=== PATIENT | male | born 1960 | race Caucasian/White ===

== ENCOUNTER 2017-04-01 19:41 | Emergency (ER) | payer MEDICARE, MEDICAID ==
[2017-04-01] MEDS ORDERED: Aspirin Low Dose CHEW TAB* 81 MG PO ONE (20:00)
[2017-04-01 20:14] LABS: Hematocrit 42 % (42-52); Hemoglobin 14.8 g/dl (14.0-18.0); Mean Corpuscular HGB Conc 35 g/dl (31-36); Mean Corpuscular Hemoglobin 33 pg (27-31); Mean Corpuscular Volume 94 fL (80-94); Mean Platelet Volume 8 um3 (7.4-10.4); Red Blood Count 4.52 10^6/ul (4.0-5.4); Red Cell Distribution Width 13 % (10.5-15); White Blood Count 12.7 10^3/ul (3.5-10.8)
[2017-04-01 20:29] LABS: ALT 56 U/L (7-52); Albumin 4.4 g/dL (3.2-5.2); Alkaline Phosphatase 53 U/L (34-104); Blood Urea Nitrogen 12 mg/dL (6-24); CO2 Carbon Dioxide 22 mmol/L (22-32); Chloride 99 mmol/L (101-111); EGFR African American 109.4 (>60); EGFR Non-African American 85.1 (>60); Globulin 2.9 g/dL (2-4); Glucose 203 mg/dL (70-100); Sodium 133 mmol/L (133-145); Total Protein 7.3 g/dL (6.4-8.9)
[2017-04-01 20:45] LABS: Anion Gap 12 mmol/L (2-11)
--- NOTE | 2017-04-01 20:50 | RAD ---
INDICATION: Chest pain COMPARISON: December 30, 2011 TECHNIQUE: AP seated and lateral views were obtained. FINDINGS: Bones/Soft Tissues: There are no acute bony findings. Cardiomediastinal: The cardiomediastinal silhouette is normal. Lungs: There are no infiltrates. There is hyperinflation Pleura: There are no pleural effusions. Other: None IMPRESSION: HYPERINFLATION. NO ACTIVE DISEASE
--- NOTE | 2017-04-01 21:06 | ED ---
I, Geovani,Esau, scribed for Hipolito Rosenbaum MD on 04/01/17 at 2005 . HPI Chest Pain - HPI Summary HPI Summary: This 57 y/o male presents to ED for sharp chest pain since 1830 PM. Positive nausea, tremor, and numbness at LUE and LLE. Pt states was working outdoors all day PMHx is significant for AR s/p cardiac stent, COPD, neuropathy and AAA, and pt states today's episode feel similar to his previous AR. Pt is not oxygen dependent at home. - History of Current Complaint Chief Complaint: EDShortnessOfBreath Time Seen by Provider: 04/01/17 19:51 Hx Obtained From: Patient, Medical Records Onset/Duration: Started Hours Ago, Atraumatic, Still Present Timing: Constant Pain Intensity: 3 Pain Scale Used: 0-10 Numeric Chest Pain Location: Diffuse Chest Pain Radiates: No Aggravating Factor(s): Nothing Alleviating Factor(s): Nothing Associated Signs and Symptoms: Positive: Chest Pain, Numbness - LLE and LUE, Shortness of Breath - new onset or chronic?, Nausea, Other: - tremor. Negative : Fever - Allergy/Home Medications Allergies/Adverse Reactions: Allergies Allergy/AdvReac Type Severity Reaction Status Date / Time Atenolol Allergy Unknown Verified 12/06/13 13:31 Reaction Details PMH/Surg Hx/FS Hx/Imm Hx Cardiovascular History: Reports: Hx Aneurysm - abd aneurysm, Hx Coronary Artery Disease, Hx Myocardial Infarction - s/p stent Respiratory History: Reports: Hx Chronic Obstructive Pulmonary Disease (COPD) Neurological History: Reports: Hx Peripheral Neuropathy Infectious Disease History: No Infectious Disease History: Denies: Traveled Outside the [place] in Last 30 Days - Family History Known Family History: Positive: Hypertension - Social History Lives: With Family Hx Substance Use: No Substance Use Type: Reports: None Hx Tobacco Use: Yes Smoking Status (MU): Former Smoker Review of Systems Negative: Fever Positive: Chest Pain Positive: Shortness Of Breath - acute or chronic? Positive: Nausea Positive: Other - tremor Positive: Numbness - LLE and LUE All Other Systems Reviewed And Are Negative: Yes Physical Exam Triage Information Reviewed: Yes Vital Signs On Initial Exam: Initial Vitals Temp Pulse Resp BP Pulse Ox 97.7 F 100 18 131/87 96 04/01/17 19:45 04/01/17 19:45 04/01/17 19:45 04/01/17 19:45 04/01/17 19:45 Vital Signs Reviewed: Yes Appearance: Positive: Well-Appearing, No Pain Distress Skin: Positive: Warm, Dry Eyes: Positive: KEE[place] ENT: Positive: Hearing grossly normal Neck: Positive: Supple Respiratory/Lung Sounds: Positive: Clear to Auscultation, Breath Sounds Present Cardiovascular: Positive: RRR Abdomen Description: Positive: Nontender, Soft Bowel Sounds: Positive: Present Musculoskeletal: Positive: Strength/ROM Intact Neurological: Positive: Alert, Oriented to Person Place, Time Diagnostics - Vital Signs Vital Signs Temp Pulse Resp BP Pulse Ox 04/01/17 19:47 97.7 F 100 18 131/87 97 04/01/17 19:45 97.7 F 100 18 131/87 96 - Laboratory Lab Results: Lab Results 04/01/17 04/01/17 04/01/17 Range/Units 20:07 20:07 20:07 WBC 12.7 H (3.5-10.8) 10^3/ul RBC 4.52 (4.0-5.4) 10^6/ul Hgb 14.8 (14.0-18.0) g/dl Hct 42 (42-52) % MCV 94 (80-94) fL MCH 33 H (27-31) pg MCHC 35 (31-36) g/dl RDW 13 (10.5-15) % Plt Count 219 (150-450) 10^3/ul MPV 8 (7.4-10.4) um3 Neut % (Auto) 79.2 (38-83) % Lymph % (Auto) 14.1 L (25-47) % [place] % (Auto) 5.3 (1-9) % Eos % (Auto) 0.5 (0-6) % Baso % (Auto) 0.9 (0-2) % Absolute Neuts (auto) 10.1 H (1.5-7.7) 10^3/ul Absolute Lymphs (auto) 1.8 (1.0-4.8) 10^3/ul Absolute Monos (auto) 0.7 (0-0.8) 10^3/ul Absolute Eos (auto) 0.1 (0-0.6) 10^3/ul Absolute Basos (auto) 0.1 (0-0.2) 10^3/ul Absolute Nucleated RBC 0 10^3/ul Nucleated RBC % 0 Sodium 133 (133-145) mmol/L Potassium TNP Chloride 99 L (101-111) mmol/L Carbon Dioxide 22 (22-32) mmol/L Anion Gap 12 H (2-11) mmol/L BUN 12 (6-24) mg/dL Creatinine 0.92 (0.67-1.17) mg/dL Est GFR ( Amer) 109.4 (>60) Est GFR (Non-Af Amer) 85.1 (>60) BUN/Creatinine Ratio 13.0 (8-20) Glucose 203 H (70-100) mg/dL Lactic Acid 3.6 H* (0.5-2.0) mmol/L Calcium 9.0 (8.6-10.3) mg/dL Total Bilirubin 0.40 (0.2-1.0) mg/dL AST TNP ALT 56 H (7-52) U/L Alkaline Phosphatase 53 (34-104) U/L Troponin I 0.00 (<0.04) ng/mL Total Protein 7.3 (6.4-8.9) g/dL Albumin 4.4 (3.2-5.2) g/dL Globulin 2.9 (2-4) g/dL Albumin/Globulin Ratio 1.5 (1-3) Result Diagrams: 04/01/17 20:07 04/01/17 20:55 Lab Statement: Any lab studies that have been ordered have been reviewed, and results considered in the medical decision making process. - Radiology CXR Xray Interpretation: No Acute Changes - HYPERINFLATION. NO ACTIVE DISEASE Radiology Interpretation Completed By: Radiologist - EKG 1958 Cardiac Rate: NL - 97 bpm EKG Rhythm: Sinus Rhythm Re-Evaluation - Re-Evaluation First Eval Re-Evaluation Time: 23:38 Change: Improved Comment: MD in room to update pt on CXR and bloodwork. Chest Pain Course/Dx - Diagnoses Provider Diagnoses: Chest pain Discharge - Discharge Plan Condition: Improved Disposition: HOME Patient Education Materials: Chest Pain (ED) Referrals: Caden Lainez MD [Primary Care Provider] - 2 Days The documentation as recorded by the Geovani cruz Soohyun accurately reflects the service I personally performed and the decisions made by me, Hipolito Rosenbaum MD.
[2017-04-01 23:47] VITALS: BP 134/82
== END 2017-04-01 23:47 | disposition home or self-care (01) ==
LOC: ED 19:41
DX: R07.9 Chest pain, unspecified (principal); J44.9 Chronic obstructive pulmonary disease, unspecified; Z87.891 Personal history of nicotine dependence; I25.2 Old myocardial infarction
CPT/HCPCS: 36415; 71020; 80053; 83605; 84484; 85025; 93005; 99283; A9270-GY

== ENCOUNTER 2017-08-14 16:21 | Emergency (ER) | payer MEDICARE, MEDICAID ==
[2017-08-14 17:54] LABS: ABS Basophils 0.1 10^3/ul (0-0.2); ABS Eosinophils 0.2 10^3/ul (0-0.6); ABS Lymphocytes 2.7 10^3/ul (1.0-4.8); ABS Monocytes 0.8 10^3/ul (0-0.8); ABS Neutrophils 4.2 10^3/ul (1.5-7.7); ABS Nucleated RBC 0 10^3/ul; Eosinophil % 2.3 % (0-6); Hematocrit 45 % (42-52); Hemoglobin 15.5 g/dl (14.0-18.0); Lymphocyte % 33.6 % (25-47); Mean Corpuscular HGB Conc 35 g/dl (31-36); Mean Corpuscular Hemoglobin 32 pg (27-31); Mean Corpuscular Volume 92 fL (80-94); Mean Platelet Volume 8 um3 (7.4-10.4); Nucleated Red Blood Cells % 0; Platelet Count 339 10^3/ul (150-450); Red Blood Count 4.86 10^6/ul (4.0-5.4); Red Cell Distribution Width 13 % (10.5-15); White Blood Count 7.9 10^3/ul (3.5-10.8)
[2017-08-14 18:10] LABS: EGFR Non-African American 90.8 (>60)
[2017-08-14 18:38] VITALS: BP 158/90
--- NOTE | 2017-09-03 19:09 | ED ---
Marck Arias Thomas, scribed for Kirit Sy MD on 08/14/17 at 1731 . Lower Extremity - HPI Summary HPI Summary: The patient is a 57 year old male referred to the ED by PCP after bilateral lower extremity US, performed on 08/12/17, revealed Occlusion of the right femoral artery. The left lower extremity arterial system is patent. Waveforms appear pelvis and tardus waveforms suggestive of a more proximal stenosis. CTA of the abdominal aorta and lower extremities could BE performed as clinically warranted. Patient reports diaphoresis, and difficulty walking due to leg pain that worsen with cold weather. Patient says that symptoms are worse in left lower extremity and have worsened over past couple of days. Patient has a history of type II Diabetes with secondary neuropathy. Patient took insulin this morning with breakfast but has no eaten lunch or dinner. - History of Current Complaint Chief Complaint: EDExtremityLower Stated Complaint: LT LEG SWOLLEN Hx Obtained From: Patient Onset/Duration: Still Present Severity Initially: Severe Pain Intensity: 9 Pain Scale Used: 0-10 Numeric Timing: Intermittent - only when walking Associated Signs And Symptoms: Positive: Negative Aggravating Factor(s): Ambulation Alleviating Factor(s): Rest - Allergies/Home Medications Allergies/Adverse Reactions: Allergies Allergy/AdvReac Type Severity Reaction Status Date / Time Atenolol AdvReac GETS Verified 07/15/17 09:39 HOT/PASSES OUT PMH/Surg Hx/FS Hx/Imm Hx Previously Healthy: No Endocrine/Hematology History: Reports: Hx Diabetes - type II, Hx Thyroid Disease - hypo Comment Only: Hx Anticoagulant Therapy - HX OF Cardiovascular History: Reports: Hx Aneurysm, Hx Coronary Artery Disease, Hx Hypercholesterolemia, Hx Hypertension, Hx Myocardial Infarction - s/p stent, Other Cardiovascular Problems/Disorders - irregular HR Denies: Hx Pacemaker/ICD Respiratory History: Reports: Hx Chronic Obstructive Pulmonary Disease (COPD), Hx Sleep Apnea GI History: Reports: Hx Diverticulosis, Hx Gastroesophageal Reflux Disease, Other GI Disorders History: Reports: Hx Benign Prostatic Hyperplasia Denies: Hx Renal Disease Musculoskeletal History: Reports: Hx Arthritis, Hx Back Problems Sensory History: Reports: Hx Contacts or Glasses, Other Sensory Impairments - dentures Denies: Hx Hearing Aid Opthamlomology History: Reports: Hx Contacts or Glasses, Other Sensory Impairments - dentures Neurological History: Reports: Hx Peripheral Neuropathy, Hx Transient Ischemic Attacks (TIA) Psychiatric History: Denies: Hx Panic Disorder - Surgical History Surgery Procedure, Year, and Place: 01/2009 BYPASS GRAFT FOR LEFT ILIAC ANEURYSM -PTFE GRAFT(MADE OF [place] AND HEMISHIELD BIFURCATION GRAFT(MADE OF [place] OR [place]) DR DENNIS SAID OK FOR 1.5. CARDIAC STENT 5-6 YRS AGO. HERNIA REPAIR Infectious Disease History: No Infectious Disease History: Denies: Traveled Outside the [place] in Last 30 Days - Family History Known Family History: Positive: Hypertension - Social History Alcohol Use: None Hx Substance Use: No Substance Use Type: Reports: None Hx Tobacco Use: Yes Smoking Status (MU): Former Smoker Review of Systems Negative: Fever Positive: Other - bilateral lower extremity pain when ambulating Neurological: Other - neuropathy secondary to type II diabetes All Other Systems Reviewed And Are Negative: Yes Physical Exam - Summary Physical Exam Summary: Appearance: Well-appearing, Well-nourished Skin: Warm, Dry, No rash, no gangrene, no ulcerations Eyes: Normal, PERRL, EOMI, sclera anicteric ENT: Normal Neck: Supple, nontender Respiratory: Clear to auscultation Cardiovascular: S1, S2, no murmur, no rub, no gallop, no distal pulses bilaterally (femoral, popliteal, posterior tibialis, or dorsalis pedis) Abdomen: Soft, nontender, no organomegaly Bowel sounds: Present Musculoskeletal: Normal, Strength/ROM Intact, no edema, Neurological: Normal, A&Ox3, cranial nerves II-XII WNL, follows commands, gait not tested, decreased sensation along stocking glove distribution Psychiatric: affect normal, behavior appropriate, dressed appropriately, judgment intact Triage Information Reviewed: Yes Vital Signs On Initial Exam: Initial Vitals Temp Pulse Resp BP Pulse Ox 95.9 F 98 19 153/81 92 08/14/17 16:35 08/14/17 16:35 08/14/17 16:35 08/14/17 16:35 08/14/17 16:35 Vital Signs Reviewed: Yes Diagnostics - Vital Signs Vital Signs Temp Pulse Resp BP Pulse Ox 08/14/17 16:35 95.9 F 98 19 153/81 92 - Laboratory Result Diagrams: 08/14/17 17:15 Lab Statement: Any lab studies that have been ordered have been reviewed, and results considered in the medical decision making process. Lower Extremity Course/Dx - Course Assessment/Plan: The patient will be discharged home with follow up at a vascular specialist. The absence of rest pain or gangrene means that an elective workup is not necessary. - Diagnoses Provider Diagnoses: Peripheral arterial disease Discharge - Discharge Plan Condition: Good Disposition: HOME Patient Education Materials: Peripheral Vascular Disease (ED) Forms: *Work Release Referrals: Pedro Hartman MD [Primary Care Provider] - The documentation as recorded by the Marck cruz Thomas accurately reflects the service I personally performed and the decisions made by Kerrei eli Matthew, MD.
== END 2017-08-14 18:37 | disposition home or self-care (01) ==
LOC: ED 16:21
DX: I73.9 Peripheral vascular disease, unspecified (principal); Z87.891 Personal history of nicotine dependence; E11.9 Type 2 diabetes mellitus without complications; Z86.79 Personal history of other diseases of the circulatory system; I25.2 Old myocardial infarction; Z87.19 Personal history of other diseases of the digestive system
CPT/HCPCS: 36415; 80053; 85025; 99283

== ENCOUNTER 2018-08-05 09:13 | Emergency (ER) | payer MEDICARE, MEDICAID ==
[2018-08-05] MEDS ORDERED: methylPREDNISolone 125 MG* 2 ML VIAL IV ONE (09:34)
[2018-08-05] MEDS ORDERED: Albuterol/Ipratropium NEB.SOL* Albuterol 2.5 MG/Ipratropium 0.5 MG 3 ML INH ONE ×2 (09:34→09:52)
[2018-08-05] MEDS ORDERED: methylPREDNISolone 125 MG* 2 ML VIAL ONE (09:35)
[2018-08-05] MEDS ORDERED: Albuterol/Ipratropium NEB.SOL* Albuterol 2.5 MG/Ipratropium 0.5 MG 3 ML ONE (09:35)
--- NOTE | 2018-08-05 09:39 | ED ---
Shortness of Breath - HPI Summary HPI Summary: A 58 y/o male presents to [facility] with a chief complaint of SOB since around 07/29. Per , the patient has also been coughing throughout the week which has been getting progressively worse. The pt has a Hx of COPD. He is taking Prednisone along with cough medicine and was started on Z-pack yesterday. In the ED he is shouting that he cannot breathe. He also c/o chest and back pain due to coughing. - History of Current Complaint Chief Complaint: EDShortnessOfBreath Time Seen by Provider: 08/05/18 09:28 Hx Obtained From: Patient, Family/Track Dresser Onset/Duration: Sudden Onset, Lasting Days, Still Present Current Severity: Moderate Aggrevating Factors: Nothing Associated Signs & Symptoms: Cough (Nonproductive), Chest Pain w/Cough - Allergy/Home Medications Allergies/Adverse Reactions: Allergies Allergy/AdvReac Type Severity Reaction Status Date / Time atenolol Allergy See Comment Verified 08/05/18 09:23 Home Medications: Home Medications Losartan TAB* [Cozaar TAB*] 25 mg PO DAILY 08/05/18 [History Confirmed 08/05/18] Plavix TAB* 75 mg PO DAILY 08/05/18 [History Confirmed 08/05/18] Pravastatin (NF) [Pravachol (NF)] 20 mg PO DAILY 08/05/18 [History Confirmed 02/15] PMH/Surg Hx/FS Hx/Imm Hx Endocrine/Hematology History: Reports: Hx Diabetes - type II, Hx Thyroid Disease - hypo Comment Only: Hx Anticoagulant Therapy - HX OF Cardiovascular History: Reports: Hx Aneurysm, Hx Coronary Artery Disease, Hx Hypercholesterolemia, Hx Hypertension, Hx Myocardial Infarction - s/p stent, Other Cardiovascular Problems/Disorders - irregular HR Denies: Hx Pacemaker/ICD Respiratory History: Reports: Hx Chronic Obstructive Pulmonary Disease (COPD), Hx Sleep Apnea GI History: Reports: Hx Diverticulosis, Hx Gastroesophageal Reflux Disease, Other GI Disorders History: Reports: Hx Benign Prostatic Hyperplasia Denies: Hx Renal Disease Musculoskeletal History: Reports: Hx Arthritis, Hx Back Problems Sensory History: Reports: Hx Contacts or Glasses, Other Sensory Impairments - dentures Denies: Hx Hearing Aid Opthamlomology History: Reports: Hx Contacts or Glasses, Other Sensory Impairments - dentures Neurological History: Reports: Hx Peripheral Neuropathy, Hx Transient Ischemic Attacks (TIA) Psychiatric History: Denies: Hx Panic Disorder - Surgical History Surgery Procedure, Year, and Place: 01/2009 BYPASS GRAFT FOR LEFT ILIAC ANEURYSM -PTFE GRAFT(MADE OF [place] AND HEMISHIELD BIFURCATION GRAFT(MADE OF [place] OR [place]) DR DENNIS SAID OK FOR 1.5. CARDIAC STENT 5-6 YRS AGO. HERNIA REPAIR Infectious Disease History: No Infectious Disease History: Denies: Traveled Outside the [place] in Last 30 Days - Family History Known Family History: Positive: Hypertension - Social History Alcohol Use: None Hx Substance Use: No Substance Use Type: Reports: None Hx Tobacco Use: Yes Smoking Status (MU): Former Smoker Review of Systems Negative: Fever Positive: Chest Pain - due to cough Positive: Shortness Of Breath, Cough Positive: Myalgia - back pain due to cough All Other Systems Reviewed And Are Negative: Yes Physical Exam - Summary Physical Exam Summary: Appearance: The patient is well-nourished in moderate distress and in no acute pain. Skin: The skin is warm and dry and skin color reflects adequate perfusion. HEENT: The head is normocephalic and atraumatic. The pupils are equal and reactive. The conjunctivae are clear and without drainage. Nares are patent and without drainage. Mouth reveals moist mucous membranes and the throat is without erythema and exudate. The external ears are intact. The ear canals are patent and without drainage. The tympanic membranes are intact. Neck: The neck is supple with full range of motion and non-tender. There are no carotid bruits. There is no neck vein distension. Respiratory: Chest is non-tender. Increased expiratory wheezing, decreased breath sounds. Tachypnic. Patient in moderate distress. Cardiovascular: Heart is regular rate and rhythm. There is no murmur or rub auscultated. There is no peripheral edema and pulses are symmetrical and equal. Abdomen: The abdomen is soft and non-tender. There are normal bowel sounds heard in all four quadrants and there is no organomegaly palpated. Musculoskeletal: There is no back tenderness noted. Extremities are non-tender with full range of motion. There is good capillary refill. There is no peripheral edema or calf tenderness elicited. Neurological: Patient is alert and oriented to person, place and time. The patient has symmetrical motor strength in all four extremities. Cranial nerves are grossly intact. Deep tendon reflexes are symmetrical and equal in all four extremities. Psychiatric: The patient has an appropriate affect and does not exhibit any anxiety or depression. Triage Information Reviewed: Yes Vital Signs On Initial Exam: Initial Vitals Temp Pulse Resp BP Pulse Ox 96.9 F 88 20 144/108 93 08/05/18 09:19 18 09:19 08/05/18 09:19 08/05/18 09:19 08/05/18 09:19 Vital Signs Reviewed: Yes Diagnostics - Vital Signs Vital Signs Temp Pulse Resp BP Pulse Ox 08/05/18 09:19 96.9 F 88 20 144/108 93 - Laboratory Result Diagrams: 08/05/18 10:09 08/05/18 10:09 Lab Statement: Any lab studies that have been ordered have been reviewed, and results considered in the medical decision making process. - Radiology CXR Radiology Interpretation Completed By: Radiologist Summary of Radiographic Findings: FINDINGS SUGGESTIVE OF COPD, NO EVIDENCE FOR ACUTE FINDING. ED physician has reviewed this imaging report. - EKG 09:43 Cardiac Rate: NL - 96 bpm EKG Rhythm: Sinus Rhythm Summary of EKG Findings: Normal sinus rhythm, normal ST, no ectopy, no STEMI. Re-Evaluation - Re-Evaluation First Eval Re-Evaluation Time: 11:30 Change: Improved Comment: Patient states that he is feeling better. Course/Dx - Course Course Of Treatment: Mr. Gordillo presented rather dramatically to the emergency department complaining of shortness of breath. He had been seen and diagnosed with bronchitis by his PCP. He was started on a Z-Jonas and a cough suppressant with instructions to fill a prescription for prednisone if he got worse. He has not had any prednisone yet. On arrival he had an increased UTI time with tachypnea and expiratory wheezes. He was given a couple of nebulizers and Solu-Medrol as well as guaifenesin with codeine and felt very much improved. He ambulated about the department without dropping his pulse ox or complaint. I recommended we try as an outpatient which she is willing to do and he will return as necessary. - Diagnoses Provider Diagnoses: Bronchitis, Bronchial spasm Discharge - Sign-Out/Discharge Documenting (check all that apply): Patient Departure - DC - Discharge Plan Condition: Stable Disposition: HOME Patient Education Materials: Acute Bronchitis (ED) Referrals: Red VILLEGAS,Ernst Ellis [Primary Care Provider] - (2-3 days) Additional Instructions: Fill your Prednisone prescription and take as directed. Continue your other medications. Follow up with your PCP in 2-3 days. Return to the ED if you experience any new or worsening symptoms. - Billing Disposition and Condition Condition: STABLE Disposition: Home - Attestation Statements Document Initiated by Chasity: Yes Documenting Scribe: Ernst Hill Provider For Whom Chasity is Documenting (Include Credential): Yannick Rizo MD Scribe Attestation: I, Ernst Hill, scribed for Yannick Rizo MD on 08/05/18 at 1430. Scribe Documentation Reviewed: Yes Provider Attestation: The documentation as recorded by the Ernst cruz accurately reflects the service I personally performed and the decisions made by me, Yannick Rizo MD Status of Scribe Document: Viewed
[2018-08-05 10:22] LABS: INR 1.04 (0.77-1.02)
[2018-08-05 10:30] LABS: ABS Basophils 0.1 10^3/ul (0-0.2); ABS Lymphocytes 3.4 10^3/ul (1.0-4.8); ABS Monocytes 0.9 10^3/ul (0-0.8); ABS Nucleated RBC 0 10^3/ul; Eosinophil % 9.3 %; Hematocrit 48 % (42-52); Hemoglobin 16.7 g/dl (14.0-18.0); Mean Corpuscular HGB Conc 35 g/dl (31-36); Mean Corpuscular Hemoglobin 32 pg (27-31); Mean Corpuscular Volume 92 fL (80-94); Mean Platelet Volume 7.7 fL (7.4-10.4); Nucleated Red Blood Cells % 0.1; Platelet Count 344 10^3/ul (150-450); Red Blood Count 5.22 10^6/ul (4.00-5.40); Red Cell Distribution Width 13 % (10.5-15); White Blood Count 10.4 10^3/ul (3.5-10.8)
[2018-08-05 10:42] LABS: EGFR Non-African American 88.1 (>60)
[2018-08-05] MEDS ORDERED: guaiFENesin/CODIEN 100MG-10MG* 5 ML UDC PO ONE (11:06)
[2018-08-05 11:46] VITALS: BP 126/85
== END 2018-08-05 11:45 | disposition home or self-care (01) ==
LOC: ED 09:13
DX: J98.01 Acute bronchospasm (principal)
CPT/HCPCS: 36415; 71045; 80053; 83605; 83880; 84484; 85025; 85610; 86140; 87040; 93005; 96374; 99282; A9270-GY; J2930

== ENCOUNTER 2020-04-18 10:07 | Inpatient (IN) ==
[2020-04-18] MEDS ORDERED: Albuterol/Ipratropium NEB.SOL (2.5/0.5 MG) 3 ML NEB.SOLN INH ONE ×2 (10:19→11:06)
[2020-04-18] MEDS ORDERED: methylPREDNISolone 125 mg 2 ML VIAL IV ONE (10:19)
[2020-04-18 10:45] LABS: ABS Basophils 0.1 10^3/ul (0-0.2); ABS Lymphocytes 1.8 10^3/ul (1.0-4.8); ABS Monocytes 0.9 10^3/ul (0-0.8); ABS Neutrophils 8.1 10^3/ul (1.5-7.7); Eosinophil % 8.4 %; Hematocrit 44 % (42-52); Hemoglobin 15.7 g/dL (14.0-18.0); Lymphocyte % 15.1 %; Mean Corpuscular HGB Conc 36 g/dL (31-36); Mean Corpuscular Hemoglobin 33 pg (27-31); Mean Corpuscular Volume 92 fL (80-94); Mean Platelet Volume 8.1 fL (7.4-10.4); Nucleated Red Blood Cells % 0.1; Platelet Count 324 10^3/uL (150-450); Red Blood Count 4.82 10^6 /uL (4.18-5.48); Red Cell Distribution Width 13 % (10-15)
[2020-04-18 11:04] LABS: ALT 55 U/L (7-52); AST 32 U/L (13-39); Albumin 4.8 g/dL (3.2-5.2); Albumin/Globulin Ratio 1.7 (1-3); Alkaline Phosphatase 46 U/L (34-104); Anion Gap 11 mmol/L (2-11); BUN/Creatinine Ratio 12.6 (8-20); Blood Urea Nitrogen 12 mg/dL (6-24); CO2 Carbon Dioxide 24 mmol/L (22-32); Calcium 9.7 mg/dL (8.6-10.3); Chloride 100 mmol/L (101-111); EGFR African American 98.2 (>60); EGFR Non-African American 81.1 (>60); Globulin 2.9 g/dL (2-4); Glucose 270 mg/dL (70-100); Potassium 3.9 mmol/L (3.5-5.0); Sodium 135 mmol/L (135-145); Total Protein 7.7 g/dL (6.4-8.9); Troponin I 0.02 ng/mL (<0.03)
[2020-04-18] MEDS ORDERED: NS 0.9% 1000 ml BAG 1,000 ML IV ONE ×2 (11:05→11:11)
[2020-04-18] MEDS ORDERED: Albuterol 0.5% CONC NEB.SOL 5 mg/ml 20 ml BOT INH ONE ×2 (12:25→13:19)
[2020-04-18] MEDS ORDERED: Iodixanol (CONTRAST) 320 MG/ML 100 ML SDV IV ONE (13:08)
[2020-04-18] MEDS ORDERED: cefTRIAXone 1 gm/50 mL NS BAG 1 GM/50 ML BAG IV ONE (14:33)
[2020-04-18] MEDS ORDERED: Azithromycin 500 mg/250 ml NS 500 MG/250 ML BAG IVPB ONE (14:33)
[2020-04-18] MEDS ORDERED: Magnesium Sulfate 2 gm BAG 2 GM/50 ML BAG IVPB ONE (15:50)
[2020-04-18 17:11] LABS: Alcohol, S < 10 mg/dL (<10)
[2020-04-18] MEDS: Enoxaparin 40 MG/0.4 ML SYR SUBCUT SCH (17:45)
[2020-04-18] MEDS ORDERED: Albuterol/Ipratropium NEB.SOL (2.5/0.5 MG) 3 ML NEB.SOLN INH SCH (19:00)
[2020-04-18] MEDS: Mometasone/Formoter 100/5 MDI INH SCH (19:27)
[2020-04-18] MEDS: methylPREDNISolone 125 mg 2 ML VIAL IV SCH (21:31)
[2020-04-18] MEDS: Insulin GLARGINE 100 un/ml 10 ml VIAL SUBCUT SCH (21:31)
[2020-04-19 04:51] LABS: Hematocrit 41 % (42-52); Hemoglobin 14.8 g/dL (14.0-18.0); Mean Corpuscular HGB Conc 36 g/dL (31-36); Mean Corpuscular Hemoglobin 33 pg (27-31); Mean Corpuscular Volume 93 fL (80-94); Mean Platelet Volume 8.2 fL (7.4-10.4); Platelet Count 302 10^3/uL (150-450); Red Blood Count 4.48 10^6 /uL (4.18-5.48); Red Cell Distribution Width 13 % (10-15); White Blood Count 8.8 10^3/uL (3.5-10.8)
[2020-04-19] MEDS: methylPREDNISolone 125 mg 2 ML VIAL IV SCH ×3 (05:02→21:07)
[2020-04-19 05:17] LABS: Albumin 4.5 g/dL (3.2-5.2); Albumin/Globulin Ratio 1.7 (1-3); BUN/Creatinine Ratio 15.3 (8-20); Calcium 9.1 mg/dL (8.6-10.3); EGFR African American 94.7 (>60); EGFR Non-African American 78.3 (>60); Globulin 2.7 g/dL (2-4); Total Bilirubin 0.7 mg/dL (0.2-1.0); Total Protein 7.2 g/dL (6.4-8.9)
[2020-04-19] MEDS ORDERED: Perflutren Lipid Microsphere 3 ML VIAL ONE (08:01)
[2020-04-19] MEDS: Mometasone/Formoter 100/5 MDI INH SCH ×2 (08:10→19:40)
[2020-04-19] MEDS: Insulin GLARGINE 100 un/ml 10 ml VIAL SUBCUT SCH ×2 (08:49→21:05)
[2020-04-19] MEDS: Aspirin EC 81 mg TAB.EC (enteric coated) PO SCH (08:50)
[2020-04-19] MEDS ORDERED: Acetylcysteine INHALATION SOL 200 MG/ML NEB.SOLN 10 ML INH SCH (11:00)
[2020-04-19] MEDS: guaiFENesin 100 mg/5 ml LIQ unit dose cup PO SCH ×4 (11:38→22:30)
[2020-04-19] MEDS: cefTRIAXone 1 gm/50 mL NS BAG 1 GM/50 ML BAG IVPB SCH (11:39)
[2020-04-19] MEDS: Albuterol/Ipratropium NEB.SOL (2.5/0.5 MG) 3 ML NEB.SOLN INH SCH ×2 (12:29→19:41)
[2020-04-19] MEDS: Acetylcysteine INHALATION SOL 200 MG/ML NEB.SOLN 10 ML INH SCH ×2 (12:30→19:41)
[2020-04-19 13:01] LABS: Urine Benzodiazepine Screen None Detected (None Detect); Urine Cannabinoids Screen None Detected (None Detect); Urine Opiates Screen None Detected (None Detect)
[2020-04-19] MEDS: Azithromycin 500 mg/250 ml NS 500 MG/250 ML BAG IVPB SCH (13:04)
[2020-04-19] MEDS: Enoxaparin 40 MG/0.4 ML SYR SUBCUT SCH (15:00)
[2020-04-19] MEDS ORDERED: Senna TAB 8.6 mg TAB PO PRN (19:02)
[2020-04-20] MEDS: Albuterol/Ipratropium NEB.SOL (2.5/0.5 MG) 3 ML NEB.SOLN INH SCH ×4 (01:08→19:24)
[2020-04-20] MEDS: Acetylcysteine INHALATION SOL 200 MG/ML NEB.SOLN 10 ML INH SCH ×4 (01:08→19:24)
[2020-04-20] MEDS: guaiFENesin 100 mg/5 ml LIQ unit dose cup PO SCH ×6 (02:55→22:48)
[2020-04-20] MEDS: methylPREDNISolone 125 mg 2 ML VIAL IV SCH (05:36)
[2020-04-20] MEDS ORDERED: Furosemide 20 mg/2 ml IV VIAL IV SLOW PU ONE (07:54)
[2020-04-20] MEDS: Aspirin EC 81 mg TAB.EC (enteric coated) PO SCH (08:12)
[2020-04-20] MEDS: Insulin GLARGINE 100 un/ml 10 ml VIAL SUBCUT SCH ×2 (09:07→20:28)
[2020-04-20] MEDS: methylPREDNISolone SOD 40 mg/ml 1 ml VIAL IV SCH ×2 (12:00→22:48)
[2020-04-20] MEDS: cefTRIAXone 1 gm/50 mL NS BAG 1 GM/50 ML BAG IVPB SCH (12:00)
[2020-04-20] MEDS: Azithromycin 500 mg/250 ml NS 500 MG/250 ML BAG IVPB SCH (12:46)
[2020-04-20] MEDS: Polyethylene Glycol 3350 17 GM PACKET PO SCH ×2 (15:08→15:29)
[2020-04-20] MEDS: Enoxaparin 40 MG/0.4 ML SYR SUBCUT SCH (15:08)
[2020-04-21] MEDS: Acetylcysteine INHALATION SOL 200 MG/ML NEB.SOLN 10 ML INH SCH ×4 (00:45→19:28)
[2020-04-21] MEDS: Albuterol/Ipratropium NEB.SOL (2.5/0.5 MG) 3 ML NEB.SOLN INH SCH ×4 (00:45→19:28)
[2020-04-21] MEDS: guaiFENesin 100 mg/5 ml LIQ unit dose cup PO SCH ×6 (03:30→23:08)
[2020-04-21 05:36] LABS: ABS Basophils 0.1 10^3/ul (0-0.2); ABS Lymphocytes 1.2 10^3/ul (1.0-4.8); ABS Monocytes 0.6 10^3/ul (0-0.8); ABS Neutrophils 9.1 10^3/ul (1.5-7.7); Hematocrit 41 % (42-52); Hemoglobin 14.2 g/dL (14.0-18.0); Lymphocyte % 11.3 %; Mean Corpuscular HGB Conc 35 g/dL (31-36); Mean Corpuscular Hemoglobin 32 pg (27-31); Mean Corpuscular Volume 93 fL (80-94); Platelet Count 288 10^3/uL (150-450); Red Blood Count 4.39 10^6 /uL (4.18-5.48); Red Cell Distribution Width 13 % (10-15)
[2020-04-21 05:52] LABS: BUN/Creatinine Ratio 20.9 (8-20); Calcium 8.6 mg/dL (8.6-10.3); EGFR African American 103.2 (>60); EGFR Non-African American 85.3 (>60); Potassium 4.1 mmol/L (3.5-5.0)
[2020-04-21] MEDS: Aspirin EC 81 mg TAB.EC (enteric coated) PO SCH (08:01)
[2020-04-21] MEDS: Isosorbide Mononit ER 30mg TAB PO SCH (08:01)
[2020-04-21] MEDS: Insulin GLARGINE 100 un/ml 10 ml VIAL SUBCUT SCH ×2 (08:02→21:01)
[2020-04-21] MEDS: Polyethylene Glycol 3350 17 GM PACKET PO SCH (08:02)
[2020-04-21] MEDS: cefTRIAXone 1 gm/50 mL NS BAG 1 GM/50 ML BAG IVPB SCH (12:32)
[2020-04-21] MEDS: Azithromycin 500 mg/250 ml NS 500 MG/250 ML BAG IVPB SCH (13:43)
[2020-04-21] MEDS: Enoxaparin 40 MG/0.4 ML SYR SUBCUT SCH (15:24)
[2020-04-22] MEDS: Albuterol/Ipratropium NEB.SOL (2.5/0.5 MG) 3 ML NEB.SOLN INH SCH ×3 (00:31→13:17)
[2020-04-22] MEDS: Acetylcysteine INHALATION SOL 200 MG/ML NEB.SOLN 10 ML INH SCH ×3 (00:31→13:17)
[2020-04-22] MEDS: guaiFENesin 100 mg/5 ml LIQ unit dose cup PO SCH ×3 (03:11→12:08)
[2020-04-22] MEDS: Aspirin EC 81 mg TAB.EC (enteric coated) PO SCH (07:41)
[2020-04-22] MEDS: Isosorbide Mononit ER 30mg TAB PO SCH (07:41)
[2020-04-22] MEDS: Polyethylene Glycol 3350 17 GM PACKET PO SCH (07:42)
[2020-04-22] MEDS: Insulin GLARGINE 100 un/ml 10 ml VIAL SUBCUT SCH (08:01)
[2020-04-22] MEDS: cefTRIAXone 1 gm/50 mL NS BAG 1 GM/50 ML BAG IVPB SCH (12:08)
[2020-04-22 12:33] VITALS: BP 117/64
== END 2020-04-22 14:32 | disposition home or self-care (01) | DRG 191 ==
LOC: ED 10:07 → ICU 16:06 → MED 04-21 09:05
PROVIDERS: ADMIT Nurse Practitioner Family; ATTEND Hospitalist

== ENCOUNTER 2022-04-17 09:30 | Inpatient (IN) ==
[2022-04-17] MEDS ORDERED: Albuterol/Ipratropium NEB.SOL (2.5/0.5 MG) 3 ML NEB.SOLN INH ONE ×2 (10:19→13:01)
[2022-04-17] MEDS ORDERED: Albuterol/Ipratropium NEB.SOL (2.5/0.5 MG) 3 ML NEB.SOLN ONE (10:19)
[2022-04-17 10:40] LABS: ABS Basophils 0.1 10^3/ul (0-0.2); ABS Eosinophils 1.6 10^3/ul (0-0.6); ABS Monocytes 0.7 10^3/ul (0-0.8); ABS Neutrophils 10.7 10^3/ul (1.5-7.7); Eosinophil % 11.1 %; Hematocrit 47 % (42-52); Lymphocyte % 7.2 %; Mean Corpuscular HGB Conc 34 g/dL (31-36); Mean Corpuscular Hemoglobin 32 pg (27-31); Mean Corpuscular Volume 93 fL (80-94); Mean Platelet Volume 7.6 fL (7.4-10.4); Platelet Count 291 10^3/uL (150-450); Red Blood Count 5.02 10^6 /uL (4.18-5.48); Red Cell Distribution Width 14 % (10-15); White Blood Count 14.2 10^3/uL (3.5-10.8)
[2022-04-17 10:42] LABS: PCO2 Arterial 40 mmHg (35-45); PO2 Arterial 213 mmHg (80-100)
[2022-04-17 11:21] LABS: INR 1.12 (0.89-1.11)
[2022-04-17 11:25] LABS: Albumin 4.6 g/dL (3.2-5.2); Albumin/Globulin Ratio 1.8 (1-3); Calcium 9.4 mg/dL (8.6-10.3); Globulin 2.6 g/dL (2-4); Magnesium 1.9 mg/dL (1.9-2.7); Potassium 4.4 mmol/L (3.5-5.0); Total Bilirubin 0.6 mg/dL (0.2-1.0); Total Protein 7.2 g/dL (6.4-8.9); eGFR CKD-EPI 98.9 (>60)
[2022-04-17 12:09] LABS: High Sensitivity Troponin 1 Hr 275 pg/mL (<20)
[2022-04-17] MEDS ORDERED: Iodixanol (CONTRAST) 320 MG/ML 100 ML SDV IV ONE (12:12)
[2022-04-17] MEDS ORDERED: Dextrose 50% Syringe 50 ml 25 GM/50 ML SYRINGE IV PUSH PRN (15:06)
[2022-04-17] MEDS ORDERED: Albuterol/Ipratropium NEB.SOL (2.5/0.5 MG) 3 ML NEB.SOLN INH PRN (15:07)
[2022-04-17 15:13] LABS: Urine Appearance Clear; Urine Bilirubin Negative (Negative); Urine Blood Trace (Intact) (Negative); Urine Color Yellow; Urine Glucose Negative (Negative); Urine Ketones Negative (Negative); Urine Specific Gravity 1.025 (1.005-1.030)
[2022-04-17 15:14] LABS: Urine Nitrite Negative (Negative); Urine Protein 3+ (>=300 mg/dL) (Negative); Urine Urobilinogen 0.2 (Negative) (Negative); Urine pH 5.5 (5.0-9.0)
[2022-04-17 15:17] LABS: Urine Bacteria Absent (Absent); Urine Red Blood Cell 2+(6-10/hpf) (Absent); Urine Squamous Epithelial Cell Present (Absent); Urine White Blood Cell 3+(>20/hpf) (Absent)
[2022-04-17] MEDS: Albuterol/Ipratropium NEB.SOL (2.5/0.5 MG) 3 ML NEB.SOLN INH SCH ×2 (16:35→19:35)
[2022-04-17] MEDS: methylPREDNISolone SOD SUCC 40 mg/ml 1 ml VIAL IV SCH (16:39)
[2022-04-17] MEDS ORDERED: Perflutren Lipid Microsphere 3 ML VIAL ONE (16:44)
[2022-04-17 17:33] LABS: C Reactive Protein 4.23 mg/L (<8.01)
[2022-04-17] MEDS: cefTRIAXone 1 gm/50 mL D5W 1 GM/50 ML BAG IV SCH (18:38)
[2022-04-17] MEDS: Mometasone/Formoter 200/5 MDI INH SCH (19:36)
[2022-04-17] MEDS ORDERED: Insulin GLARGINE 100 un/ml 10 ml VIAL SUBCUT ONE (21:00)
[2022-04-18] MEDS: Albuterol/Ipratropium NEB.SOL (2.5/0.5 MG) 3 ML NEB.SOLN INH SCH ×3 (00:18→14:05)
[2022-04-18] MEDS: methylPREDNISolone SOD SUCC 40 mg/ml 1 ml VIAL IV SCH ×3 (00:45→17:41)
[2022-04-18 04:38] LABS: ABS Basophils 0.1 10^3/ul (0-0.2); ABS Lymphocytes 1.2 10^3/ul (1.0-4.8); ABS Monocytes 0.4 10^3/ul (0-0.8); ABS Neutrophils 11.4 10^3/ul (1.5-7.7); Eosinophil % 0.2 %; Hematocrit 47 % (42-52); Hemoglobin 15.8 g/dL (14.0-18.0); Lymphocyte % 9.3 %; Mean Corpuscular HGB Conc 34 g/dL (31-36); Mean Corpuscular Hemoglobin 31 pg (27-31); Mean Corpuscular Volume 93 fL (80-94); Mean Platelet Volume 7.9 fL (7.4-10.4); Platelet Count 287 10^3/uL (150-450); Red Blood Count 5.03 10^6 /uL (4.18-5.48); Red Cell Distribution Width 13 % (10-15); White Blood Count 13.1 10^3/uL (3.5-10.8)
[2022-04-18 05:16] LABS: Blood Urea Nitrogen 16 mg/dL (6-24); CO2 Carbon Dioxide 21 mmol/L (22-32); Calcium 7.3 mg/dL (8.6-10.3); Glucose 127 mg/dL (70-100); Magnesium 1.7 mg/dL (1.9-2.7); Sodium 139 mmol/L (135-145); eGFR CKD-EPI 103.5 (>60)
[2022-04-18 05:17] LABS: Chloride 114 mmol/L (101-111)
[2022-04-18 05:27] LABS: Anion Gap 4 mmol/L (2-11)
[2022-04-18 05:31] LABS: TSH Ultra Thyroid Stim Horm 0.19 mcIU/mL (0.34-5.60)
[2022-04-18] MEDS: Mometasone/Formoter 200/5 MDI INH SCH ×2 (07:22→19:36)
[2022-04-18] MEDS ORDERED: Magnesium Sulfate 2 gm BAG 2 GM/50 ML BAG IVPB ONE (07:23)
[2022-04-18] MEDS: Aspirin EC 81 mg TAB.EC (enteric coated) PO SCH (07:47)
[2022-04-18 08:41] LABS: Potassium 4.9 mmol/L (3.5-5.0)
[2022-04-18] MEDS ORDERED: Isosorbide Mononit ER 30mg TAB PO SCH ×2 (09:00→21:00)
[2022-04-18] MEDS ORDERED: PITAVASTATIN 2 MG PO SCH (09:00)
[2022-04-18] MEDS: Insulin GLARGINE 100 un/ml 10 ml VIAL SUBCUT SCH ×2 (10:25→20:24)
[2022-04-18 12:31] LABS: HDL Cholesterol 52.8 mg/dL
[2022-04-18] MEDS ORDERED: Enoxaparin 40 MG/0.4 ML SYR SUBCUT SCH (13:00)
[2022-04-18] MEDS: Enoxaparin 60 MG/0.6 ML SYR SUBCUT SCH (13:21)
[2022-04-18] MEDS ORDERED: Enoxaparin 60 MG/0.6 ML SYR SUBCUT SCH (13:30)
[2022-04-18 13:49] LABS: Total T3 43 ng/dL (87-178)
[2022-04-18 15:44] LABS: INR 1.15 (0.89-1.11)
[2022-04-18] MEDS: cefTRIAXone 1 gm/50 mL D5W 1 GM/50 ML BAG IV SCH (17:40)
[2022-04-18] MEDS: Levalbuterol HFA INHALER MDI INH PRN (19:36)
[2022-04-19] MEDS: methylPREDNISolone SOD SUCC 40 mg/ml 1 ml VIAL IV SCH ×4 (01:28→23:28)
[2022-04-19 04:28] LABS: ABS Basophils 0.1 10^3/ul (0-0.2); ABS Lymphocytes 1.2 10^3/ul (1.0-4.8); ABS Monocytes 0.6 10^3/ul (0-0.8); ABS Neutrophils 16.2 10^3/ul (1.5-7.7); Hematocrit 48 % (42-52); Hemoglobin 16.1 g/dL (14.0-18.0); Lymphocyte % 6.8 %; Mean Corpuscular HGB Conc 34 g/dL (31-36); Mean Corpuscular Hemoglobin 31 pg (27-31); Mean Corpuscular Volume 93 fL (80-94); Mean Platelet Volume 7.5 fL (7.4-10.4); Platelet Count 331 10^3/uL (150-450); Red Blood Count 5.17 10^6 /uL (4.18-5.48); Red Cell Distribution Width 14 % (10-15); White Blood Count 18.1 10^3/uL (3.5-10.8)
[2022-04-19 05:34] LABS: Calcium 9.6 mg/dL (8.6-10.3); Magnesium 2.3 mg/dL (1.9-2.7); Potassium 4.7 mmol/L (3.5-5.0); eGFR CKD-EPI 83.6 (>60)
[2022-04-19] MEDS: Insulin GLARGINE 100 un/ml 10 ml VIAL SUBCUT SCH ×2 (08:40→21:37)
[2022-04-19] MEDS: Aspirin EC 81 mg TAB.EC (enteric coated) PO SCH (08:41)
[2022-04-19] MEDS: Isosorbide Mononit ER 60mg TAB PO SCH (08:41)
[2022-04-19] MEDS ORDERED: Furosemide 40 mg/4 ml IV VIAL IV ONE (09:27)
[2022-04-19] MEDS: Mometasone/Formoter 200/5 MDI INH SCH ×2 (10:15→17:50)
[2022-04-19] MEDS: Enoxaparin 60 MG/0.6 ML SYR SUBCUT SCH (13:29)
[2022-04-19] MEDS: cefTRIAXone 1 gm/50 mL D5W 1 GM/50 ML BAG IV SCH (17:45)
[2022-04-19] MEDS: Levalbuterol HFA INHALER MDI INH PRN (21:32)
[2022-04-20] MEDS: Mometasone/Formoter 200/5 MDI INH SCH ×2 (07:16→19:40)
[2022-04-20] MEDS: Levalbuterol HFA INHALER MDI INH PRN (07:17)
[2022-04-20] MEDS: Insulin GLARGINE 100 un/ml 10 ml VIAL SUBCUT SCH ×2 (09:39→21:21)
[2022-04-20] MEDS: methylPREDNISolone SOD SUCC 40 mg/ml 1 ml VIAL IV SCH ×2 (09:39→21:21)
[2022-04-20] MEDS: Isosorbide Mononit ER 60mg TAB PO SCH (09:39)
[2022-04-20] MEDS: Aspirin EC 81 mg TAB.EC (enteric coated) PO SCH (09:40)
[2022-04-20] MEDS: Enoxaparin 60 MG/0.6 ML SYR SUBCUT SCH (13:53)
[2022-04-20] MEDS: cefTRIAXone 1 gm/50 mL D5W 1 GM/50 ML BAG IV SCH (17:00)
[2022-04-20] MEDS ORDERED: NS 0.9% 1000 ml BAG 1,000 ML IV SCH (23:55)
[2022-04-21] MEDS ORDERED: NS 0.9% 1000 ml BAG 1,000 ML IV SCH (06:00)
[2022-04-21 06:04] LABS: ABS Lymphocytes 1.6 10^3/ul (1.0-4.8); ABS Monocytes 0.8 10^3/ul (0-0.8); ABS Neutrophils 12.8 10^3/ul (1.5-7.7); Hematocrit 46 % (42-52); Hemoglobin 15.9 g/dL (14.0-18.0); Lymphocyte % 10.2 %; Mean Corpuscular HGB Conc 35 g/dL (31-36); Mean Corpuscular Hemoglobin 32 pg (27-31); Mean Corpuscular Volume 93 fL (80-94); Mean Platelet Volume 7.7 fL (7.4-10.4); Platelet Count 340 10^3/uL (150-450); Red Blood Count 4.95 10^6 /uL (4.18-5.48); Red Cell Distribution Width 14 % (10-15); White Blood Count 15.2 10^3/uL (3.5-10.8)
[2022-04-21 06:23] LABS: Calcium 9.4 mg/dL (8.6-10.3); Magnesium 2.2 mg/dL (1.9-2.7); Potassium 4.5 mmol/L (3.5-5.0); eGFR CKD-EPI 97.2 (>60)
[2022-04-21] MEDS: Mometasone/Formoter 200/5 MDI INH SCH ×2 (07:35→18:43)
[2022-04-21] MEDS: Levalbuterol HFA INHALER MDI INH PRN (07:35)
[2022-04-21] MEDS ORDERED: fentaNYL 100 mcg/2 ml 50 MCG/ML VIAL ONE (09:35)
[2022-04-21] MEDS ORDERED: Heparin 1,000 UNIT/ML 10 ml (10,000 UNITS) CATHLAB/DIALYSIS ONE (09:35)
[2022-04-21] MEDS ORDERED: VERAPAMIL 2.5 MG/ML 2 ML VIAL ** 5 mg/2 ml ONE (09:35)
[2022-04-21] MEDS ORDERED: Lidocaine 1% MPF 5 ML VIAL ONE (09:35)
[2022-04-21] MEDS ORDERED: nitroGLYCERIN DRIP 25,000 MCG/250 ML BTL ONE (09:35)
[2022-04-21] MEDS ORDERED: Heparin 2 UNITS/ML 1000 mls 2,000 ML IV ONE (09:35)
[2022-04-21] MEDS ORDERED: Midazolam 5 mg/5 ml VIAL 1 mg/ml 5 ml VIAL (5 mg) ONE (09:35)
[2022-04-21] MEDS ORDERED: Iohexol 350 (CONTRAST) 100 ML PAK IV ONE (09:36)
[2022-04-21] MEDS: methylPREDNISolone SOD SUCC 40 mg/ml 1 ml VIAL IV SCH ×2 (10:06→19:44)
[2022-04-21] MEDS: Insulin GLARGINE 100 un/ml 10 ml VIAL SUBCUT SCH ×2 (10:06→21:04)
[2022-04-21] MEDS: Enoxaparin 60 MG/0.6 ML SYR SUBCUT SCH (17:14)
[2022-04-21] MEDS: Aspirin EC 81 mg TAB.EC (enteric coated) PO SCH (17:15)
[2022-04-21] MEDS: Isosorbide Mononit ER 60mg TAB PO SCH (17:16)
[2022-04-21] MEDS: cefTRIAXone 1 gm/50 mL D5W 1 GM/50 ML BAG IV SCH (17:23)
[2022-04-22] MEDS: Levalbuterol HFA INHALER MDI INH PRN (07:21)
[2022-04-22] MEDS: Mometasone/Formoter 200/5 MDI INH SCH (07:22)
[2022-04-22] MEDS ORDERED: SPIRIVA Respimat (tiotropium) 2.5 mcg/inh Inhaler INH SCH (09:00)
[2022-04-22] MEDS: Isosorbide Mononit ER 60mg TAB PO SCH (09:44)
[2022-04-22] MEDS: Aspirin EC 81 mg TAB.EC (enteric coated) PO SCH (09:45)
[2022-04-22] MEDS: Insulin GLARGINE 100 un/ml 10 ml VIAL SUBCUT SCH (09:48)
[2022-04-22 11:19] VITALS: BP 149/67
[2022-04-22] MEDS: Enoxaparin 60 MG/0.6 ML SYR SUBCUT SCH (19:04)
== END 2022-04-22 15:30 | disposition home or self-care (01) | DRG 189 ==
LOC: ED 09:30 → EDHOLD 14:26 → SUATTDRO 14:26 → ICU 15:51 → MEDTELE 04-19 16:10
PROVIDERS: ADMIT Surgery Surgical Critical Care; ATTEND Internal Medicine